=== PATIENT | female | born 1935 | race Caucasian/White ===

== ENCOUNTER 2017-12-28 16:00 | Inpatient (IN) | payer MEDICARE ==
[~2017-12-28] VITALS: Ht 165.1 cm; Wt 88.9 kg
--- NOTE | ~2017-12-28 | PR ---
[place], [place] PROGRESS NOTE NAME: RAMYA LANDEROS UNIT #: [id number] ROOM: 310 DOCTOR: NORA SKY MD BIRTHDATE: [birth year] DOS: 12/31/2017 PSYCHIATRIC PROGRESS NOTE SUBJECTIVE: Patient seen and spoke with the staff. Per staff, the patient is pleasantly confused, anxious at times, but easily redirectable. She is compliant with her medication. The patient was pleasant and cooperative . She was in the day area. She reports doing good. She did not express any problems or concerns. She was not in any distress. She is compliant with her medication, did not have any side effect from the medication. MENTAL STATUS EXAMINATION: Pleasant, cooperative, described her mood as "okay." Affect, mood congruent. She denied auditory or visual hallucination. No delusion or paranoia noted. She denied suicidal ideation, intent or plan. She also denies any homicidal ideation, intent or plan. PLAN: 1. Continue current medication and care. 2. Encourage activities in groups. 3. Supportive care. NORA SKY MD CM:PNTRANS [id number] NORA SKY MD 01/01/18 0307 interface
--- NOTE | ~2017-12-28 | DS ---
[place], [place] DISCHARGE SUMMARY NAME: [facility]OS [id number] UNIT #: [id number] ROOM: 310 DOCTOR: VU EVANS MD BIRTHDATE: [birth year] DOS: 01/05/2018 CHIEF COMPLAINT: "I am here just for a tune-up." HISTORY OF PRESENT ILLNESS: This is an 82-year-old white female who resides at [facility] in [place], [place]. The patient was sent here by her primary care doctor, Dr. Burns due to a significant change in mental status. The patient has been repeatedly exit-seeking and has been very difficult to redirect. She has been going in and out of other resident's rooms, changing into their clothes, urinating and defecating on the floor there and in their wheelchairs. Attempts to redirect her have only led to her becoming escalated and becoming verbally and physically aggressive even to the point of physical violence. Because of that, she is putting both herself and others at risk for harm. She is [facility] to rule out any organic factors, to stabilize on medication, to engage in individual and agosto milieu activities and to determine the least restrictive environment to which she can be discharged to. PAST MEDICAL HISTORY: Remarkable for cerebrovascular disease, ataxia, chronic kidney disease stage 3, degenerative joint disease, diabetes, gout, hyperlipidemia, hypertension, iron deficiency anemia, neuropathy, vitamin D deficiency and Alzheimer's dementia. SOCIAL HISTORY: She does not drink alcohol, use illicit drugs or smoke cigarettes. ALLERGIES: She lists allergies to PENICILLIN, SULFA AND ASPIRIN. SUMMARY OF HOSPITAL COURSE: The patient was admitted to the unit where her previous psychotropic medication was discontinued. This included citalopram, Aricept, melatonin, Zoloft, BuSpar and Xanax. She was started on Exelon patch 4.6 mg a day, Namenda 5 mg a day and Depakote 250 mg 3 times a day. Over the course of the next several days, her medication regimen was titrated upward to the point where Exelon was brought into the dose range of 13.3 mg a day and Depakote was maintained at 250 mg 3 times a day. Namenda likewise was brought up to its maximum dose of 10 mg twice daily. The patient tolerated the Depakote well and with the Depakote and Exelon in place, cognitively improved enough that she was able to be redirected without agitation. Additionally, her impulsivity and aggression dissipated and she was able to sit calmly in group and individual sessions without agitation. There was no incidence of her urinating or defecating anywhere on the unit during her latter part of her stay. Her sleep and appetite normalized. She became much happier and appropriate and voiced a willingness and a readiness to return back to [facility]. MENTAL STATUS AT DISCHARGE: She is alert and oriented to person, place, not necessarily to time. Mood was strongly trending towards euthymia and affect was much more appropriate. There was no symptom suggestive of hypomania or fior. Likewise, there are no overt psychotic symptoms. I did not see the presence of any auditory or visual hallucinations. No delusions, no paranoia. She did continue to process information slowly and her responses tended to be short and [place], [place] DISCHARGE SUMMARY NAME: RAMYA LANDEROS UNIT #: [id number] ROOM: 310 DOCTOR: VU EVANS MD BIRTHDATE: [birth year] simple. Short term memory continued to be problematic. FINAL DIAGNOSES: Intermittent explosive disorder and Alzheimer's dementia. DISPOSITION: To return to [facility]. PLAN: All of her prescriptions have been printed. There are no acute medical issues confronting her at the present time, no acute psychiatric issues either. The patient is stable. The patient's biopsychosocial needs are adequately being met by the facility at large and I will follow the patient upon her readmission to [facility]. VU EVANS MD CM:DISCHARG [id number] VU EVANS MD 01/05/18 1300 interface
--- NOTE | ~2017-12-28 | PR ---
[place], [place] PROGRESS NOTE NAME: RAMYA LANDEROS UNIT #: [id number] ROOM: 310 DOCTOR: KATHIE BERNAL DO BIRTHDATE: [birth year] DOS: 01/04/2018 CHIEF COMPLAINT: "Good morning." SUMMARY OF THE VISIT: The patient was interviewed in the dining room. She was seated at the table, eating her hamburger. She readily engaged in conversation. She said that she had slept well. MENTAL STATUS EXAMINATION: The patient is alert and oriented to person, place and time. Her mood is continuing to improve towards the examiner. Her affect is appropriate. PLAN: Recheck valproic acid level tomorrow. Today's level 55.3. The goal is 60-80. Continue with current medication regimen. Continue to engage in individual and agosto milieu activities, returning to the least restrictive environment when psychiatrically stable. Kathie Bernal DO VU EVANS MD CM:PNABBY [id number] KATHIE BERNAL DO 01/05/18 0530 interface
--- NOTE | ~2017-12-28 | PR ---
[place], [place] PROGRESS NOTE NAME: RAMYA LANDEROS UNIT #: [id number] ROOM: 310 DOCTOR: KATHIE BERNAL DO BIRTHDATE: [birth year] DOS: 01/04/2018 CHIEF COMPLAINT: "My neck and back hurt." SUMMARY OF THE VISIT: The patient was interviewed in the dining area. She was seated in a Serena chair. She readily engaged in conversation. She said she slept well. MENTAL STATUS EXAMINATION: She was alert and oriented to person, place and time. Her mood is less liable. She affect is appropriate. She continues to process information slowly. PLAN: Namenda increased to 5 mg twice daily. Continue to engage in individual and agosto milieu activity, return to the least restrictive environment when psychiatrically stable. Kathie Bernal DO VU EVANS MD CM:PNTRANS [id number] KATHIE BERNAL DO 01/05/18 0409 interface
--- NOTE | ~2017-12-28 | WRIGHTHP ---
[place], [place] PATIENT HISTORY AND PHYSICAL EXAM NAME: RAMYA LANDEROS UNIT #: [id number] ROOM: 310 DOCTOR: VU EVANS MD BIRTHDATE: [birth year] DOS: 12/29/2017 INITIAL PSYCHIATRIC EVALUATION CHIEF COMPLAINT: "I'm here just for a tune up." HISTORY OF PRESENT ILLNESS: This is an 82-year-old white female who resides at [facility] in [place], [place]. The patient was sent here by her primary care doctor, Dr. Burns, due to a change in mental status. The patient has been repeatedly exit seeking and has been very difficult to redirect. Additionally, she has been going into other residents' rooms, changing into their clothes, urinating and defecating on the floor and on their wheelchairs. Attempts to redirect have only led to her becoming more escalated and violent. Because she is putting herself and others at risk for harm, it was felt that an inpatient stabilization at the [facility] was warranted. She is admitted now to rule out organic factors to attempt to stabilize on medication, to engage in individual and agosto milieu activity, returning to the least restrictive environment when psychiatrically stable. PAST MEDICAL HISTORY: Remarkable for cerebrovascular disease, ataxia, chronic kidney disease stage 3, degenerative joint disease, diabetes, gout, hyperlipidemia, hypertension, iron deficiency anemia, neuropathy, vitamin D deficiency and dementia. SOCIAL HISTORY: The patient does not drink alcohol, use illicit drugs and she is a nonsmoker. ALLERGIES: SHE LISTS ALLERGIES TO PENICILLIN, SULFA AND ASPIRIN. STRENGTHS: Good verbal skills. WEAKNESSES: Poor coping skills, cognitive decline. MENTAL STATUS: She is alert and oriented to person, place, but not time. Mood does seem to be somewhat labile. She is vague upon discussing things with her. She is uncertain why she is here nor could she say how long she had been here. She seemed to hint that she was coming from home and not necessarily a penitentiary. There is no fior or hypomania or psychotic symptoms during my initial evaluation of her. She does process slowly and short term memory does have significant gaps. DIAGNOSIS: Intermittent explosive disorder. PLAN: I have already discontinued citalopram, Aricept, melatonin, Zoloft, BuSpar and Xanax in lieu of Exelon patch 4.6 mg a day and Depakote 250 mg 3 times a day. We will plan to titrate the Exelon patch to its maximum dose of 13.3 mg a day and adjust the Depakote trying to obtain a blood level between 60 and 80. We will engage in individual and agosto milieu activity, returning to the least restrictive environment when stable. [place], [place] PATIENT HISTORY AND PHYSICAL EXAM NAME: RAMYA LANDEROS UNIT #: [id number] ROOM: 310 DOCTOR: VU EVANS MD BIRTHDATE: [birth year] VU EVANS MD CM:HISPHYS:PATIENT HISTORY AND PHYSICAL EXAMINATION [phone] VU EVANS MD 12/29/17 0848 interface
--- NOTE | ~2017-12-28 | PR ---
[place], [place] PROGRESS NOTE NAME: RAMYA LANDEROS UNIT #: [id number] ROOM: 310 DOCTOR: NORA SKY MD BIRTHDATE: [birth year] DOS: 01/01/2018 PSYCHIATRIC PROGRESS NOTE SUBJECTIVE: The patient seen and spoke with the staff. Per staff, the patient is doing well, but wanders in and out of others. The patient has new room, argumentative with redirection at times. She is compliant with her medication. The patient was pleasant and cooperative. When I asked her how she is doing, she said she could not remember anything and that has been bothering her. She was not in any distress. She denied being depressed or sad. She denied any side effect from the medication. MENTAL STATUS EXAMINATION: Pleasant and cooperative. Described her mood as "okay." Affect, mood congruent. Thought processes with confabulation. She denied auditory or visual hallucination. No delusion or paranoia noted. She denied suicidal ideation, intent or plan. She also denied homicidal ideation, intent or plan. PLAN: 1. Continue current medication and care. 2. Continue redirection. 3. Supportive care. NORA SKY MD CM:PNTRANS [phone] NORA SKY MD 01/02/18 0249 interface
--- NOTE | ~2017-12-28 | PR ---
[place], [place] PROGRESS NOTE NAME: RAMYA LANDEROS UNIT #: [id number] ROOM: 310 DOCTOR: VU EVANS MD BIRTHDATE: [birth year] DOS: 01/03/2018 CHIEF COMPLAINT: "Good morning." SUMMARY OF THE VISIT: The patient was interviewed in her room. She was sitting at the edge of her bed. She engaged readily in conversation. She was rather vague and superficial. She denied any issues and stated that she had already had breakfast and that she slept well. MENTAL STATUS: She is alert and oriented to person, place, not necessarily time. Mood does seem to be trending significantly towards euthymia. Affect is much more appropriate. There is no symptom suggestive of fior, hypomania or psychosis. Short term memory has gaps, otherwise she is intact. PLAN: I will recheck a valproic acid level in the morning attempting to bring the level between 60 and 80. I will increase her Exelon patch further from 9.5-13.3 mg daily, maintaining Namenda at 10 mg twice daily. We will continue to engage in individual and agosto milieu activity, returning to the least restrictive environment when psychiatrically stable. VU EVANS MD CM:PNTRANS [id number] VU EVANS MD 01/03/18 1237 interface
[2017-12-28] MEDS ORDERED: TYLENOL EXTRA500 MG PO (16:39)
[2017-12-28] MEDS ORDERED: ALLOPURINOL300 MG PO (16:39)
[2017-12-28] MEDS ORDERED: NORVASC5 MG PO (16:40)
[2017-12-28] MEDS ORDERED: CELEXA10 MG PO (16:41)
[2017-12-28] MEDS ORDERED: LIPITOR20 MG PO (16:41)
[2017-12-28] MEDS ORDERED: CLOPIDOGREL75 MG PO (16:42)
[2017-12-28] MEDS ORDERED: ARICEPT23MG PO (16:43)
[2017-12-28] MEDS ORDERED: FEROSUL325 M1 PO (16:44)
[2017-12-28] MEDS ORDERED: LASIX20 MG PO (16:45)
[2017-12-28] MEDS ORDERED: LANTUS SOL100 UNIT/1 SQ (16:46)
[2017-12-28] MEDS ORDERED: MELATONIN3 MG PO (16:47)
[2017-12-28] MEDS ORDERED: ZOLOFT100 MG PO (16:48)
[2017-12-28] MEDS ORDERED: NAMENDA-28 PO (16:48)
[2017-12-28] MEDS ORDERED: DIOVAN320 MG PO (16:49)
[2017-12-28] MEDS ORDERED: VITAMIN D50000 UNIT PO (16:50)
[2017-12-28] MEDS ORDERED: COREG25 MG PO (16:51)
[2017-12-28] MEDS ORDERED: KLOR-CON M2020 ME1 PO (16:52)
[2017-12-28] MEDS ORDERED: BUSPIRONE HCL7.5 MG PO (16:53)
[2017-12-28] MEDS ORDERED: XANAX0.5 MG PO (16:54)
[2017-12-28] MEDS ORDERED: VISTARIL50 MG PO (16:55)
[2017-12-28 18:26] VITALS: BP 157/81
[2017-12-28 20:17] VITALS: BP 153/65
[2017-12-28 21:47] VITALS: BP 145/79
[2017-12-29 08:13] VITALS: BP 150/58
[2017-12-29 08:45] LABS: BASO % 0.6 % (0.0-1.0); EOS # 0.2 10*3/uL (0.0-0.4); EOS % 3.2 % (1.0-4.0); HEMATOCRIT 40.4 % (37.0-47.0); HEMOGLOBIN 12.4 g/dl (12.0-16.0); LYMPH # 1.4 10*3/uL (1.3-4.4); MEAN CELL VOLUME 93.1 fl (81.0-99.0); MEAN CORPUSCULAR HGB 28.6 pg (27.0-31.0); MEAN CORPUSCULAR HGB CONC 30.7 g/dl (33.0-37.0); MEAN PLATELET VOLUME 10.7 fl (9.6-12.3); MONO # 0.4 10*3/uL (0.1-1.0); MONO % 6.8 % (3.0-9.0); NEUT # 4.1 10*3/uL (2.3-7.9); NEUT % 66.8 % (47.0-73.0); PLATELET COUNT AUTOMATED 228 10*3/uL (130-400); RED BLOOD COUNT 4.34 10*6/uL (4.10-5.10); RED CELL DISTRI WIDTH 13.9 % (0-14.5); WHITE BLOOD COUNT 6.2 10*3/uL (4.8-10.8)
[2017-12-29 08:47] LABS: ALBUMIN 3.5 gm/dl (3.1-4.5); CREATININE 1.23 mg/dL (0.55-1.02); FREE T4 0.82 ng/dl (0.76-1.46); POTASSIUM 3.6 mmol/L (3.5-5.1); TOTAL PROTEIN 6.7 gm/dL (6.4-8.2)
[2017-12-29 08:52] LABS: THYROID STIM HORMONE (HS) 1.33 uIU/ml (0.358-4.75)
[2017-12-29 09:34] LABS: VITAMIN D, 25-HYDROXY 49.8 ng/mL (30-100)
[2017-12-29 10:53] LABS: BILIRUBIN NEGATIVE (NEGATIVE); BLOOD NEGATIVE (NEGATIVE); CLARITY SL CLOUDY (CLEAR); COLOR YELLOW (YELLOW); GLUCOSE NEGATIVE (NEGATIVE); KETONE NEGATIVE (NEGATIVE); LEUKO ESTERASE NEGATIVE (NEGATIVE); NITRITE NEGATIVE (NEGATIVE); UROBILINOGEN 0.2 E.U./dl (0.2-1.0)
[2017-12-29 11:05] LABS: BACTERIA 1+; EPITHELIAL CELLS 15-20
[2017-12-29 20:39] VITALS: BP 152/67
[2017-12-30 07:33] VITALS: BP 148/66
[2017-12-30 20:44] VITALS: BP 141/68
[2017-12-31 07:42] VITALS: BP 150/66
[2017-12-31 20:00] VITALS: BP 158/72
[2018-01-01 07:31] VITALS: BP 146/72
[2018-01-01 20:00] VITALS: BP 154/72
[2018-01-02 07:58] VITALS: BP 154/73
[2018-01-02 20:03] VITALS: BP 144/65
[2018-01-03 07:55] VITALS: BP 131/57
[2018-01-03 19:46] VITALS: BP 103/73
[2018-01-04 07:40] VITALS: BP 153/78
[2018-01-04 19:42] VITALS: BP 150/70
[2018-01-05 07:34] VITALS: BP 142/71
[2018-01-05] MEDS ORDERED: DEPAKOTE250 MG PO (08:45)
[2018-01-05] MEDS ORDERED: NAMENDA10 MG PO (08:45)
[2018-01-05] MEDS ORDERED: EXELON13.3 MG/21 TD (08:46)
[2018-01-05] MEDS ORDERED: EXELON13.3 MG/21 T (10:31)
[2018-01-05] MEDS ORDERED: DIVALPROEX SOD250 MG PO (10:31)
[2018-01-05] MEDS ORDERED: MEMANTINE HCL10 MG PO (10:31)
== END 2018-01-05 10:40 | DRG 883 ==
LOC: 3N 16:00
PROVIDERS: Psychiatry & Neurology Psychiatry
DX: F63.81 Intermittent explosive disorder (principal); E11.40 Type 2 diabetes mellitus with diabetic neuropathy, unspecified; G30.9 Alzheimer's disease, unspecified; F02.80 Dementia in other diseases classified elsewhere, unspecified severity, without behavioral disturbance, psychotic disturbance, mood disturbance, and anxiety; R00.1 Bradycardia, unspecified; E78.5 Hyperlipidemia, unspecified; M15.9 Polyosteoarthritis, unspecified; F41.9 Anxiety disorder, unspecified; I12.9 Hypertensive chronic kidney disease with stage 1 through stage 4 chronic kidney disease, or unspecified chronic kidney disease; F32.9 Major depressive disorder, single episode, unspecified; I67.9 Cerebrovascular disease, unspecified; N18.3 Chronic kidney disease, stage 3 (moderate); R27.0 Ataxia, unspecified; E55.9 Vitamin D deficiency, unspecified; M1A.9XX0 Chronic gout, unspecified, without tophus (tophi); Z88.6 Allergy status to analgesic agent; Z79.4 Long term (current) use of insulin; Z88.0 Allergy status to penicillin; Z88.2 Allergy status to sulfonamides; Z90.49 Acquired absence of other specified parts of digestive tract; Z90.710 Acquired absence of both cervix and uterus